=== PATIENT | male | born 2000 | race Caucasian/White ===

== ENCOUNTER → 2024-05-22 17:08 | Outpatient (CLI) | payer OTHER, SELFPAY ==
--- NOTE | 2024-05-22 17:11 | DI.MRI.S_ITS ---
PROCEDURE: MR ANKLE LT WO CON INDICATIONS: CHRONIC L ANKLE PAIN / PERONEAL TENDINITIS TECHNIQUE: Noncontrast sagittal T1 spin echo and T2 fast spin echo with fat saturation, axial proton density fast spin echo and T2 fast spin echo with fat saturation, coronal T1 spin echo and T2 fast spin echo with fat saturation through the ankle/hindfoot. COMPARISON: None. FINDINGS: Image quality: Excellent Tendons: Mild tenosynovitis of the posterior tibialis. The flexor digitorum longus, and the flexor hallucis longus are unremarkable. The extensor tendons are unremarkable. Longitudinal split tear of the peroneal brevis. The peroneal longus is unremarkable. The distal Achilles tendon is unremarkable. Ligaments: The anterior and posterior tibiofibular ligaments are intact. Marked thickening of the anterior talofibular ligament, representing prior sprain. The posterior talofibular ligament is intact. Thickening of the calcaneofibular ligament, representing prior sprain as well. Mild sprain of the deep portion of the deltoid ligament. Sinus tarsi: No fibrosis Plantar fascia: Unremarkable Muscles: Normal in signal Bones: Mild subchondral marrow edema in the lateral malleolus, reactive. No acute fracture. No significant tibiotalar effusion. IMPRESSION: 1. Longitudinal split tear of the peroneal brevis. 2. Prior sprain of the medial and lateral ankle ligaments, without tear. 3. Mild subchondral marrow edema in the lateral malleolus, reactive. Dictated by: Tracee Alba M.D. on 05/23/2024 at 10:07 Approved by: Tracee Alba M.D. on 05/23/2024 at 10:18
== END ==
LOC: MRI 17:10
PROVIDERS: Referring Provider Podiatrist; Visit Provider Podiatrist
DX: S93.492A Sprain of other ligament of left ankle, initial encounter (principal); S93.412A Sprain of calcaneofibular ligament of left ankle, initial encounter; S93.422A Sprain of deltoid ligament of left ankle, initial encounter; M25.572 Pain in left ankle and joints of left foot; M76.72 Peroneal tendinitis, left leg
CPT/HCPCS: 73721

== ENCOUNTER → 2024-06-27 14:56 | Outpatient (CLI) | payer OTHER, SELFPAY ==
--- NOTE | 2024-06-27 14:57 | DI.MRI.S_ITS ---
PROCEDURE: MR LUMBAR SPINE WO CON INDICATIONS: lumbar radiculopathy TECHNIQUE: Noncontrast sagittal T1 spin echo and T2 fast echo, sagittal STIR, and T2 fast spin echo through the lumbar spine. In cases with scoliosis, additional coronal T2 fast spin echo may be performed. COMPARISON: [facility] Outside Film, MR, MR LUMBAR SPINE WITHOUT CONTRAST, 12/06/2021, 18:36 (images only, no report). [facility], , LUMBAR SPINE INTERIAMINAR, 04/18/2023, 13:46. [facility] Outside Film, MR, MR LUMBAR SPINE WITHOUT CONTRAST, 07/15/2022, 14:21 (images only, no report). FINDINGS: Image quality: Diagnostic, with note made of motion artifact. Alignment and Curvature: There is normal bony alignment. Bone Marrow: Marrow is of normal overall signal. No acute vertebral body compression fractures. Spinal Cord: Conus medullaris terminates at the L1 level. Visualized cord demonstrates normal signal and size. Paraspinous Soft Tissues: No paravertebral masses. T12-L1: Normal appearance. L1-L2: Normal appearance. L2-L3: Normal appearance. L3-L4: Normal appearance. L4-L5: The disc height and disk signal are well-preserved. Mild generalized disc bulge is seen. There is a superimposed central disc protrusion. There is a focal annular fissure seen posteriorly. Mild facet joint hypertrophy is seen. There is mild left-sided and no right-sided neural foraminal narrowing. No significant central canal narrowing is seen. There is slight progression of degenerative change compared to 2022. L5-S1: Moderate loss of disc height is seen. Loss of disc signal is seen. Mild disc bulge is seen, with a central disc extrusion. There is a focal annular fissure seen posteriorly. Mild facet joint hypertrophy is seen. No significant neural foraminal narrowing is seen. Mild central canal narrowing is seen. There is slight progression of degenerative change compared to the prior. The annular fissure is better seen on the current study than on the prior. IMPRESSION: Focal lower lumbar spine degenerative changes are seen, which are mildly progressed compared to the outside 2022 MRI images. Dictated by: Ryan Calderón M.D. on 06/28/2024 at 20:20 Approved by: Ryan Calderón M.D. on 06/28/2024 at 20:24
== END ==
LOC: MRI 14:56
PROVIDERS: Referring Provider Physician Assistant Surgical; Visit Provider Physician Assistant Surgical
DX: M51.16 Intervertebral disc disorders with radiculopathy, lumbar region (principal); M47.27 Other spondylosis with radiculopathy, lumbosacral region; M47.26 Other spondylosis with radiculopathy, lumbar region
CPT/HCPCS: 72148